=== PATIENT | female | born 1995 | race Caucasian/White ===

== ENCOUNTER → 2021-12-22 | Day surgery (SDC) | payer BC | LOC: CSHSDC/OP 11:20 | PROVIDERS: ATTEND Obstetrics & Gynecology | DX: O36.0190 Maternal care for anti-D [Rh] antibodies, unspecified trimester, not applicable or unspecified (principal); Z3A.00 Weeks of gestation of pregnancy not specified | CPT/HCPCS: 36415; 86900; 86901; 90384; 96372 ==

== ENCOUNTER 2022-03-03 10:35 | Outpatient (CLI) | payer BC | END 2022-03-03 10:36 | disposition home or self-care (01) | LOC: CSHLAB 10:35 | PROVIDERS: ATTEND Obstetrics & Gynecology | DX: Z20.822 Contact with and (suspected) exposure to COVID-19 (principal) | CPT/HCPCS: 87811 ==

== ENCOUNTER 2022-03-10 18:42 | Inpatient (IN) | payer BC ==
[~2022-03-10 18:42] MED LIST: Lidocaine 2% PF 5 ML VIAL ONE
[2022-03-10] MEDS ORDERED: Methylergonovine 0.2 MG/ML VIAL IM PRN (19:22)
[2022-03-10] MEDS ORDERED: Misoprostol 200 MCG TAB PR PRN (19:22)
[2022-03-10] MEDS ORDERED: Promethazine HCl 25 MG/ML VIAL IM PRN (19:22)
[2022-03-10] MEDS ORDERED: Carboprost 250 MCG/ML AMP IM PRN (19:22)
[2022-03-10] MEDS ORDERED: Diphenoxylate HCl/Atropine Tablet PO PRN ×2 (19:22)
[2022-03-10] MEDS ORDERED: hydrALAZINE 20 MG/ML VIAL SLOW IVP PRN (19:22)
[2022-03-10] MEDS ORDERED: Ibuprofen 800 MG TAB PO PRN (19:22)
[2022-03-10] MEDS ORDERED: Butorphanol Tartrate 1 MG/ML VIAL SLOW IVP PRN (19:22)
[2022-03-10] MEDS ORDERED: Ondansetron PF 4 MG/2 ML Vial IVP PRN (19:22)
[2022-03-10] MEDS ORDERED: Acetaminophen 500 MG TAB PO PRN (19:22)
[2022-03-10] MEDS ORDERED: Lidocaine 1% (PF) 30 ML VIAL SC PRN (19:22)
[2022-03-10] MEDS ORDERED: HYDROcodone/Acetaminophen 5/325 mg Tablet PO PRN ×2 (19:22)
[2022-03-10] MEDS ORDERED: Ondansetron PF 4 MG/2 ML Vial ONE (19:28)
[2022-03-10] MEDS ORDERED: NS w/ Oxytocin 30 units 500 ML IV SCH ×2 (19:30)
[2022-03-10] MEDS: Lactated Ringer's 1,000 ML IV SCH ×2 (19:30→20:05)
[2022-03-10 19:51] VITALS: BMI 30.1
[2022-03-10 19:55] LABS: Hemoglobin 14.1 g/dL (12.0-15.5); Mean Corpuscular HGB CONC 35.6 g/dL (32.0-36.0); Mean Corpuscular Hemoglobin 31.8 pg (27.0-33.0); Mean Corpuscular Volume 89.2 fl (81.6-98.3); Platelet Count 162 10x3/uL (150-450); RBC Distribution Width 13.3 % (11.5-14.5); Red Blood Cell (RBC) Count 4.44 10x6/uL (3.90-5.03); White Blood Cell (WBC) Count 11.4 10x3/uL (3.5-10.5)
[2022-03-10] MEDS ORDERED: Fentanyl 2 mcg/Bup 0.1% Cadd 100 ML ONE (20:02)
[2022-03-10 20:23] LABS: HBSAg Index 0.17 S/CO (0-0.99); Hep B Surf Ag Non-Reactive S/CO (NonReactive); Syphilis Antibody Nonreactive (Nonreactive); Syphilis Antibody Index 0.06 S/CO (<1.00 Non-Reactive)
[2022-03-11] MEDS ORDERED: NS w/ Oxytocin 30 units 500 ML ONE (01:56)
[2022-03-11] MEDS: Lactated Ringer's 1,000 ML IV SCH (01:58)
[2022-03-11] MEDS ORDERED: Fentanyl 2 mcg/Bup 0.1% Cadd 100 ML ONE ×2 (04:52→11:44)
[2022-03-11] MEDS ORDERED: Lidocaine 1% (PF) 30 ML VIAL ONE (10:21)
[2022-03-11] MEDS ORDERED: Mineral Oil ENEMA ONE (12:08)
[2022-03-11] MEDS ORDERED: Ondansetron PF 4 MG/2 ML Vial IVP PRN (12:39)
[2022-03-11] MEDS ORDERED: Misoprostol 200 MCG TAB VAG PRN (12:39)
[2022-03-11] MEDS ORDERED: Benzocaine-Menthol 82.5 ML CAN TOP PRN (12:39)
[2022-03-11] MEDS ORDERED: Milk Of Magnesia 30 ML UDCUP PO PRN (12:39)
[2022-03-11] MEDS ORDERED: Bisacodyl 10 MG SUPP PR PRN (12:39)
[2022-03-11] MEDS ORDERED: hydrALAZINE 20 MG/ML VIAL SLOW IVP PRN (12:39)
[2022-03-11] MEDS ORDERED: Preparation H Ointment 28 GM TUBE PR PRN (12:39)
[2022-03-11] MEDS ORDERED: Lanolin Ointment 7 GM TUBE TOP PRN (12:39)
[2022-03-11] MEDS ORDERED: HYDROcodone/Acetaminophen 5/325 mg Tablet PO PRN ×2 (12:39)
[2022-03-11] MEDS ORDERED: Zolpidem Tartrate 5 MG TAB PO PRN (12:39)
[2022-03-11] MEDS ORDERED: diphenhydrAMINE 25 MG CAP PO PRN (12:39)
[2022-03-11] MEDS ORDERED: Witch Hazel-Glycerin 1 EACH JAR TOP PRN (12:42)
[2022-03-11] MEDS ORDERED: NS w/ Oxytocin 30 units 500 ML IV SCH (12:45)
[2022-03-11] MEDS ORDERED: diphenhydrAMINE 50 MG/ML VIAL ONE ×2 (13:46→14:00)
[2022-03-11] MEDS ORDERED: Boostrix 0.5 ML (Tdap) VIAL (>/=7 yrs of age) IM ONE (14:00)
[2022-03-11] MEDS: Ibuprofen 800 MG TAB PO SCH ×2 (14:44→22:35)
[2022-03-11] MEDS: Ampicillin/Sulbactam 3 GM in Sodium Chloride 0.9% 100 ML IVPB SCH ×2 (15:33→22:36)
[2022-03-11] MEDS: Ferrous Sulfate 325 MG TAB PO SCH (18:45)
[2022-03-11] MEDS: Docusate 100 MG CAP PO SCH (22:36)
[2022-03-12] MEDS: Ampicillin/Sulbactam 3 GM in Sodium Chloride 0.9% 100 ML IVPB SCH (04:15)
[2022-03-12 04:38] LABS: Hemoglobin 11.3 g/dL (12.0-15.5); Mean Corpuscular Hemoglobin 31.7 pg (27.0-33.0); Mean Corpuscular Volume 90.5 fl (81.6-98.3); Mean Platelet Volume 12.7 fl (7.4-10.4); Platelet Count 164 10x3/uL (150-450); RBC Distribution Width 13.5 % (11.5-14.5); Red Blood Cell (RBC) Count 3.57 10x6/uL (3.90-5.03); White Blood Cell (WBC) Count 12.5 10x3/uL (3.5-10.5)
[2022-03-12] MEDS: Ibuprofen 800 MG TAB PO SCH ×3 (06:20→21:18)
[2022-03-12] MEDS: Ferrous Sulfate 325 MG TAB PO SCH ×2 (07:33→14:54)
[2022-03-12] MEDS: Docusate 100 MG CAP PO SCH ×2 (08:23→21:18)
[2022-03-12] MEDS: Prenatal Vitamin 1 TAB PO SCH (08:23)
[2022-03-13] MEDS: Ibuprofen 800 MG TAB PO SCH (06:41)
[2022-03-13 08:07] VITALS: BP 116/72; TEMP 97.7
[2022-03-13] MEDS: Ferrous Sulfate 325 MG TAB PO SCH (08:46)
[2022-03-13] MEDS: Docusate 100 MG CAP PO SCH (09:11)
[2022-03-13] MEDS: Prenatal Vitamin 1 TAB PO SCH (09:11)
== END 2022-03-13 13:05 | disposition home or self-care (01) | DRG 806 ==
LOC: CSHLD/OP 18:42 → CSHLD 19:41 → CSHPP 03-11 17:58
PROVIDERS: ADMIT Obstetrics & Gynecology; ATTEND Obstetrics & Gynecology
PROC: 10907ZC Drainage of Amniotic Fluid, Therapeutic from Products of Conception, Via Natural or Artificial Opening (ICD-10-PCS; 2022-03-10)
PROC: 10E0XZZ Delivery of Products of Conception, External Approach (ICD-10-PCS; principal; 2022-03-11)
PROC: 3E0334Z Introduction of Serum, Toxoid and Vaccine into Peripheral Vein, Percutaneous Approach (ICD-10-PCS; 2022-03-11)
PROC: 0HQ9XZZ Repair Perineum Skin, External Approach (ICD-10-PCS; 2022-03-11)
DX: O26.893 Other specified pregnancy related conditions, third trimester (principal); O75.2 Pyrexia during labor, not elsewhere classified; Z37.0 Single live birth; O98.52 Other viral diseases complicating childbirth; Z67.41 Type O blood, Rh negative; Z3A.40 40 weeks gestation of pregnancy; B00.9 Herpesviral infection, unspecified; Z79.899 Other long term (current) drug therapy; O70.0 First degree perineal laceration during delivery; O48.0 Post-term pregnancy
CPT/HCPCS: 36415; 51702; 85027; 85461; 86780; 86850; 86870; 86900; 86901; 87340; 90384; 90715; 96372; 99283; 99285; J0295; J1200; J2001; J2405; J2590; J3490; J7120

== ENCOUNTER 2023-06-25 05:36 | Inpatient (IN) | payer BC ==
[2023-06-25 05:50] VITALS: BMI 29.4
[2023-06-25] MEDS ORDERED: Promethazine HCl 25 MG/ML VIAL IM PRN ×2 (06:02→08:28)
[2023-06-25] MEDS ORDERED: Lidocaine 1% (PF) 30 ML VIAL SC PRN (06:02)
[2023-06-25] MEDS ORDERED: fentaNYL 50 mcg/mL 1 mL Vial SLOW IVP PRN (06:02)
[2023-06-25] MEDS ORDERED: Ibuprofen 800 MG TAB PO PRN (06:02)
[2023-06-25] MEDS ORDERED: hydrALAZINE 20 MG/ML VIAL SLOW IVP PRN ×3 (06:02→11:49)
[2023-06-25] MEDS ORDERED: Ondansetron PF 4 MG/2 ML Vial IVP PRN ×3 (06:02→11:37)
[2023-06-25] MEDS ORDERED: HYDROcodone/Acetaminophen 5/325 mg Tablet PO PRN ×6 (06:02→11:49)
[2023-06-25] MEDS ORDERED: Misoprostol 200 MCG TAB PR PRN (06:02)
[2023-06-25] MEDS ORDERED: Oxytocin 30 units/NS 500 ML 500 ML IV SCH ×4 (06:15→12:00)
[2023-06-25] MEDS ORDERED: Lactated Ringer's 1,000 ML IV SCH (06:15)
[2023-06-25 06:49] LABS: Hematocrit 38.9 % (34.9-44.5); Mean Corpuscular Volume 86.1 fl (81.6-98.3); Platelet Count 140 10x3/uL (150-450); RBC Distribution Width 12.9 % (11.5-14.5); Red Blood Cell (RBC) Count 4.52 10x6/uL (3.90-5.03); White Blood Cell (WBC) Count 11.1 10x3/uL (3.5-10.5)
[2023-06-25] MEDS ORDERED: fentaNYL/Ropivacaine Epidural 100 ML ONE (06:57)
[2023-06-25 07:21] LABS: HBSAg Index 0.18 S/CO (0-0.99); Hep B Surf Ag - L&D Non-Reactive S/CO (NonReactive)
[2023-06-25 07:23] LABS: Syphilis Antibody Nonreactive (Nonreactive); Syphilis Antibody Index 0.07 S/CO (<1.00 Non-Reactive)
[2023-06-25] MEDS ORDERED: Naloxone HCl 0.4 mg/ml Vial IVP PRN ×2 (08:28)
[2023-06-25] MEDS ORDERED: diphenhydrAMINE 50 MG/ML VIAL IVP PRN (08:28)
[2023-06-25] MEDS ORDERED: Moisturizing Cream (Eucerin) 113 GM JAR TOP PRN (08:28)
[2023-06-25] MEDS ORDERED: Acetaminophen 325 MG TAB PO PRN (08:28)
[2023-06-25] MEDS ORDERED: ePHEDrine Sulfate 50 MG/10 ML VIAL SLOW IVP PRN (08:28)
[2023-06-25] MEDS ORDERED: Lactated Ringer's 500 ML IV PRN (08:28)
[2023-06-25] MEDS ORDERED: fentaNYL 2 mcg/Ropivacaine 0.2% Epidural 100 ML CADD EPIDURAL SCH (08:30)
[2023-06-25] MEDS ORDERED: Communication Order-Pharmacy FS SCH (08:30)
[2023-06-25] MEDS ORDERED: Benzocaine-Menthol 82.5 ML CAN TOP PRN ×2 (11:37→11:49)
[2023-06-25] MEDS ORDERED: Lanolin Ointment 7 GM TUBE TOP PRN (11:37)
[2023-06-25] MEDS ORDERED: Milk Of Magnesia 30 ML UDCUP PO PRN ×2 (11:37→11:49)
[2023-06-25] MEDS ORDERED: Bisacodyl 10 MG SUPP PR PRN ×2 (11:37→11:49)
[2023-06-25] MEDS ORDERED: Boostrix 0.5 ML (Tdap) VIAL (>/=7 yrs of age) IM ONE (11:37)
[2023-06-25] MEDS ORDERED: Ibuprofen 800 MG TAB PO SCH (14:00)
[2023-06-25] MEDS ORDERED: Ferrous Sulfate 325 MG TAB PO SCH (17:00)
[2023-06-25] MEDS: Ibuprofen 800 MG TAB PO SCH ×2 (19:39→21:37)
[2023-06-25] MEDS: Ferrous Sulfate 325 MG TAB PO SCH (19:40)
[2023-06-25] MEDS ORDERED: Docusate 100 MG CAP PO SCH (21:00)
[2023-06-25] MEDS: Docusate 100 MG CAP PO SCH (21:36)
[2023-06-26 07:34] VITALS: BP 113/72; TEMP 98.2
[2023-06-26] MEDS: Ibuprofen 800 MG TAB PO SCH (08:23)
[2023-06-26] MEDS: Ferrous Sulfate 325 MG TAB PO SCH (08:23)
[2023-06-26] MEDS: Docusate 100 MG CAP PO SCH (08:23)
[2023-06-26] MEDS ORDERED: valACYclovir 500 MG TAB PO SCH (09:00)
[2023-06-26] MEDS ORDERED: Prenatal Vitamin 1 TAB PO SCH ×2 (09:00)
== END 2023-06-26 11:20 | disposition home or self-care (01) | DRG 807 ==
LOC: CSHLD/OP 05:36 → CSHLD 06:32 → CSHPED 13:36
PROVIDERS: ADMIT Obstetrics & Gynecology; ATTEND Obstetrics & Gynecology
PROC: 10E0XZZ Delivery of Products of Conception, External Approach (ICD-10-PCS; principal; 2023-06-25)
PROC: 3E033XZ Introduction of Vasopressor into Peripheral Vein, Percutaneous Approach (ICD-10-PCS; 2023-06-25)
DX: O80 Encounter for full-term uncomplicated delivery (principal); Z37.0 Single live birth; Z3A.40 40 weeks gestation of pregnancy; O26.893 Other specified pregnancy related conditions, third trimester; Z67.41 Type O blood, Rh negative
CPT/HCPCS: 36415; 85027; 85461; 86780; 86850; 86900; 86901; 87340; 90384; 96372

== ENCOUNTER 2025-05-09 17:07 | Inpatient (IN) | payer BC ==
[2025-05-09] MEDS ORDERED: diphenhydrAMINE 25 MG CAP PO PRN (17:44)
[2025-05-09] MEDS ORDERED: diphenhydrAMINE 50 MG/ML VIAL IM PRN (17:44)
[2025-05-09] MEDS ORDERED: diphenhydrAMINE 50 MG/ML VIAL IVP PRN (17:44)
[2025-05-09] MEDS ORDERED: Communication Order-Pharmacy FS PRN (17:45)
[2025-05-09 17:52] VITALS: BMI 30.1
[2025-05-09] MEDS: HYDROmorphone HCl/0.9% NaCl/PF 30 ML IV SCH (18:08)
[2025-05-09] MEDS ORDERED: Simethicone Chewable 80 MG TAB PO PRN (18:16)
[2025-05-09] MEDS ORDERED: Lanolin Ointment 7 GM TUBE TOP PRN (18:16)
[2025-05-09] MEDS ORDERED: Tranexamic Acid 1,000 MG/10 ML VIAL IVP PRN (18:16)
[2025-05-09] MEDS ORDERED: Oxytocin 30 units/NS 500 ML 500 ML IV SCH ×2 (18:16)
[2025-05-09] MEDS ORDERED: Carboprost 250 MCG/ML AMP IM PRN (18:16)
[2025-05-09] MEDS ORDERED: Acetaminophen 325 MG TAB PO PRN (18:16)
[2025-05-09] MEDS ORDERED: Diphenoxylate HCl/Atropine Tablet PO PRN ×2 (18:16)
[2025-05-09] MEDS ORDERED: Methylergonovine 0.2 MG/ML VIAL IM PRN ×2 (18:16)
[2025-05-09] MEDS ORDERED: hydrALAZINE 20 MG/ML VIAL SLOW IVP PRN ×2 (18:16)
[2025-05-09] MEDS: Ketorolac Tromethamine 30 MG (1 mL) VIAL IVP SCH (20:55)
[2025-05-09 22:27] LABS: HIV (1/2) Antibody/Antigen Non-Reactive (NonReactive); HIV 1/2 INDEX 0.11 S/CO (<1.00); Hep B Surf Ag - L&D Non-Reactive S/CO (NonReactive)
[2025-05-09 22:28] LABS: Syphilis Antibody Index 0.07 S/CO (<1.00 Non-Reactive)
[2025-05-09] MEDS: Ondansetron PF 4 MG/2 ML Vial IVP PRN (23:12)
[2025-05-10 04:29] LABS: Hematocrit 27.4 % (34.9-44.5); Hemoglobin 9.5 g/dL (12.0-15.5); Mean Corpuscular Hemoglobin 29.9 pg (27.0-33.0); Mean Corpuscular Volume 86.2 fL (81.6-98.3); Platelet Count 184 10x3/uL (150-450); Red Blood Cell (RBC) Count 3.18 10x6/uL (3.90-5.03); White Blood Cell (WBC) Count 8.11 10x3/uL (3.5-10.5)
[2025-05-10] MEDS: HYDROcodone/Acetaminophen 5/325 mg Tablet PO PRN (13:24)
[2025-05-11 06:00] LABS: Hematocrit 27.6 % (34.9-44.5); Hemoglobin 9.5 g/dL (12.0-15.5); Mean Corpuscular Hemoglobin 30.2 pg (27.0-33.0); Mean Corpuscular Volume 87.6 fL (81.6-98.3); Platelet Count 183 10x3/uL (150-450); Red Blood Cell (RBC) Count 3.15 10x6/uL (3.90-5.03); White Blood Cell (WBC) Count 7.38 10x3/uL (3.5-10.5)
[2025-05-11 20:18] VITALS: BP 123/66; TEMP 98.1
[2025-05-12] MEDS: Ibuprofen 800 MG TAB PO SCH (05:46)
[2025-05-12] MEDS: HYDROcodone/Acetaminophen 5/325 mg Tablet PO PRN (13:58)
== END 2025-05-12 14:00 | disposition home or self-care (01) | DRG 776 ==
LOC: CSHLD 17:07 → CSHPP 22:40
PROVIDERS: ADMIT Family Medicine; ATTEND Family Medicine
DX: O72.1 Other immediate postpartum hemorrhage (principal); O99.53 Diseases of the respiratory system complicating the puerperium; J06.9 Acute upper respiratory infection, unspecified; Z3A.34 34 weeks gestation of pregnancy; Z37.0 Single live birth
CPT/HCPCS: 36415; 80053; 85025; 85027; 85049; 85300; 85362; 85384; 85610; 85730; 86780; 86850; 86900; 86901; 87340; 87389; 88307; 99285; A4314; J0456; J0690; J1171; J1200; J1885; J2270; J2405; J2590; J2704; J3490; J7050